=== PATIENT | male | born 1975 | race Caucasian/White ===

== ENCOUNTER 2023-02-24 15:52 | Inpatient (IN) | payer SELFPAY ==
[2023-02-24] VITALS (22 sets, daily range): BP systolic 110–198; BP diastolic 57–119; PULSE 60–84; RESP 17–24; TEMP 36.7–36.9; O2SAT 96–100; BMI 33.9; BMI 35.3
--- NOTE | 2023-02-24 | IR_ITS ---
APPROVED REPORT Patient Location: Emergent Artificial Stone Setter: ILENE Paulson RT (R) PROCEDURES Left heart catheterization Left ventriculogram Selective coronary angiogram Attempted angioplasty of the right coronary Mechanical thrombectomy to the circumflex artery Drug-eluting stent deployment to the mid circumflex artery extending to the obtuse marginal artery INDICATION Acute ST elevation myocardial infarction, Coronary artery disease Informed consent was obtained prior to the procedure. COMPLICATIONS none Estimated Blood Loss: less than 10 ml TECHNIQUE One percent lidocaine used to anesthetize the right anterior aspect of the wrist. The right radial artery was accessed via the Seldinger technique. A 6 [place] sheath was placed in the right radial artery. 2.5 mg of Verapamil, 800 mcg of nitroglycerin, 1mg Lidocaine and 5000 U Heparin were given through the arterial sheath. The papa catheter was also used to perform right coronary angiography. The distal right coronary was occluded therefore Choice PT extra-support wire was placed down the vessel. The wire did not easily pass therefore a 2 mm x 12 mm balloon was advanced and used to steer the wire. When it was apparent this vessel was a chronic occlusion the apparatus was quickly remove and the catheter was used and the gauge the left main artery. A Choice PT wire was used to push through the thrombus in the circumflex artery and a penumbra catheter was used to aspirate the thrombus restoring BRIEN-3 flow. A 3 mm x 26 mm [place] frontier stent was deployed at 18 antonino reducing the stenosis to 0%. An additional 3 mm x 18 mm Jv frontier stent was placed distal to the for stent yet still overlapping and extending into the first obtuse marginal artery and deployed at 16 antonino. The balloon was brought back and deployed at 20 antonino to mesh the 2 stents. BRIEN 0 flow was present at the beginning the procedure with BRIEN-3 flow at the end of procedure. Within the procedure the apparatus was removed the sheath was removed and hemostasis was achieved using TR banding patient was transferred to postop putting in stable condition ANGIOGRAPHIC RESULTS The left main artery Normal The left anterior descending artery Has mild proximal and mid vessel 10% luminal irregularities The circumflex artery Is large giving rise to a large obtuse marginal artery which is proximally thrombosed. After percutaneous revascularization the circumflex artery was widely patent with wide inline flow throughout the large obtuse marginal artery The right coronary artery Is a dominant vessel and distally occluded. The distal posterior descending artery fills via [id number] collaterals The PATEL ventriculogram reveals Ejection fraction of 35 to 40% with inferior wall hypokinesis The left ventricular end-diastolic pressure Severely elevated at 40 mmHg IMPRESSION Chronically occluded distal right coronary artery which fills via [id number] collaterals Acute myocardial infarction involving the circumflex artery approximately a large obtuse marginal artery Successful percutaneous revascularization of the circumflex artery/obtuse marginal artery preceded by mechanical thrombectomy reducing the 100% occlusion to 0% with 2 contiguous drug-eluting stents Reduced ejection fraction which is indeterminant by LV gram Severely elevated LVEDP PLAN 1. Effient 10 mg daily plus aspirin 81 mg daily 2. Supportive care of the next 48 hours 3. Echocardiogram to evaluate ejection fraction to determine if patient is a candidate for LifeVest 4. Recommend renal duplex due to malignant hypertension upon presentation and aggressive vascular disease at a young age. Suspect renal artery stenosis 5. RYLIE inhibitors and beta-blockers to be advanced as hemodynamically
--- NOTE | 2023-02-24 15:54 | ECG_ITS ---
APPROVED REPORT Exam: Resting ECG HR:79 bpm ECG Measurements Heart Rate 79 AXES [place] 189 P 61 QRSd 121 QRS 116 QT 374 T 141 QTc 408 Conclusion SINUS RHYTHM POSSIBLE RIGHT VENTRICULAR HYPERTROPHY [SOME/ALL OF: PROMINENT R IN V1, LATE TRANSITION, RAD, DOUGIE, SSS] INFERIOR MYOCARDIAL INFARCTION , POSSIBLY ACUTE [40+ ms Q WAVE AND/OR ST/T ABNORMALITY IN II/aVF] ANTEROLATERAL MYOCARDIAL INFARCTION , PROBABLY RECENT [40+ ms Q WAVE IN I/aVL/V3-V6] ACUTE OR UNCONFIRMED REPORT Electronically signed by : Marbin Saravia MD 02/25/2023 19:43:58
--- NOTE | 2023-02-24 15:57 | PC.NURSE ---
ER MD Gage speaking with Dr. Macias
--- NOTE | 2023-02-24 16:00 | PC.NURSE ---
pt transported to [facility] at this time.
--- NOTE | 2023-02-24 16:03 | HMH.EDGENADL ---
Discharge Plan Disposition Patient Disposition: Still a Patient Clinical Impressions Clinical Impression: STEMI (ST elevation myocardial infarction) Discharge ED Provider: Alvin Gage Adult HPI General Chief complaint: Chest Pain Stated complaint: chest pain Time Seen by Provider: 02/24/23 15:59 Mode of Arrival: EMS Source of Information: Patient and EMS Limitations: No Limitations Description of Symptoms (Recalled from ER Triage Doc. by RN): pt presents by EMS as STEMI alert. pt states pain started approx 30 mins ago after finishing mowing. pt states pain is located in center of his chest and radiates to his jaw. History of Present Illness HPI narrative: Patient presents for evaluation of acute onset substernal crushing chest pain with history of ACS, symptoms started approximately 30 minutes ago after finishing mowing lawn. Pain radiates to jaw, patient was found to have ST elevation per EMS, Sawmill Moulder Operator was immediately activated upon arrival to the emergency department, other history limited secondary to acuity of patient's condition. Related Data Home Medications Medication Instructions Recorded Confirmed amlodipine 10 mg tablet 5 mg PO DAILY High Blood Pressure 02/24/23 02/24/23 lisinopril 20 mg tablet 20 mg PO DAILY High Blood Pressure 02/24/23 02/25/23 sertraline 25 mg tablet 25 mg PO DAILY Depression 02/24/23 02/24/23 Allergies Allergy/AdvReac Type Severity Reaction Status Date / Time No Known Allergies Allergy Verified 02/24/23 16:00 [facility] Disclaimer: The information contained in this section may have been updated after the patient was seen, as this information can be updated by other users. Medical History (Updated 02/25/23 @ 10:13 by Chelo Sotomayor APRN) Hypertension Juvenile chronic myeloid leukemia Myocardial infarct Surgical History (Updated 02/24/23 @ 17:52 by Mira Parish RN) H/O heart artery stent Social History (Updated 02/24/23 @ 17:53 by Mira Parish RN) Smoking Status: Current every day smoker alcohol intake: never current occupational status: employed Travel in the last 8 weeks: None ROS Obtained: Yes Systems reviewed as appropriate & no additional complaints except as documented Physical Exam General General appearance: alert (Diaphoretic) and in distress Head Head exam: atraumatic and normocephalic Eye Eye exam: Present normal appearance Neck Neck exam: Present normal inspection Chest Chest inspection: Present normal inspection and symmetric chest wall rise Respiratory Respiratory exam: Present normal lung sounds bilaterally; Absent respiratory distress Cardiovascular Cardiovascular exam: Present regular rate, normal rhythm and tachycardia Abdominal Exam Abdominal exam: Present soft Neurological Exam Neurological exam: Present alert and oriented X3 Psychiatric Psychiatric exam: Present normal affect and normal mood Skin Skin exam: Present warm and diaphoresis Medical Decision Making Medical Records Medical records reviewed: Yes I reviewed the patient's medical records. David Inquiry Pt receiving controlled substance: No Vital Signs: 02/24/23 15:52 02/24/23 16:03 Temperature 98.1 F Temperature Source Oral Pulse Rate 79 Pulse Rate [Apical] 84 Respiratory Rate 18 24 Blood Pressure 167/119 H Blood Pressure [Right Arm] 167/106 H Blood Pressure Mean [Right Arm] 126 Blood Pressure Source Automatic Cuff Blood Pressure Source [Right Arm] Automatic Cuff Blood Pressure Position Sitting Blood Pressure Position [Right Arm] Sitting 02 Sat by Pulse Oximetry 98 100 Oxygen Delivery Method Non-Rebreather Nasal Cannula Oxygen Flow Rate (LPM) 15 2 Lab Data Lab Results 02/24/23 15:52: WBC 16.3 H, RBC 5.56, Hgb 16.7, Hct 49.6, MCV 89.1, MCH 30.0, MCHC 33.6, RDW 13.4, Plt Count 258, MPV 8.2, Neut % (Auto) 72.9, Lymph % (Auto) 20.4, [place] % (Auto) 5.1, Eos % (Auto) 0.9, Baso % (Auto) 0.7, Neut # (Auto) 11.9 H, Lymph #
[2023-02-24 16:05] LABS: POC Glucose,Bedside 142 (70-110)
--- NOTE | 2023-02-24 16:09 | PC.NURSE ---
PT BEING TRANSPORTED TO THE DISC PAD PLATE FILLER
[2023-02-24 16:16] LABS: Basophils # 0.1 K/mm3 (0-0.2); Basophils % 0.7 % (0.1-2.0); Eosinophils # 0.2 K/mm3 (0.0-0.4); Eosinophils % 0.9 % (0.1-12.0); Hematocrit 49.6 % (42.0-52.0); Hemoglobin 16.7 g/dL (14.1-18.0); Lymphocytes # 3.3 K/mm3 (0.7-4.5); Lymphocytes % 20.4 % (10-50); Mean Corpuscular HGB Conc 33.6 g/dL (31.8-35.4); Mean Corpuscular Volume 89.1 fl (80-94); Mean Platelet Volume 8.2 fl (7.4-10.4); Monocytes # 0.8 K/mm3 (0.1-1.0); Monocytes % 5.1 % (1.7-9.3); Neutrophils # 11.9 K/mm3 (1.8-7.8); Neutrophils % 72.9 % (37.0-80.0); Platelet Count 258 K/mm3 (142-424); Red Blood Count 5.56 M/mm3 (4.60-6.20); Red Cell Distribution Width 13.4 % (11.5-17.5); White Blood Count 16.3 K/mm3 (4.8-10.8)
[2023-02-24 16:18] LABS: MANUAL DIFFERENTIAL MANUAL DIFFERENTIAL (MANUAL DIFF)
[2023-02-24 16:33] LABS: Alanine Aminotransferase 43 U/L (12-78); Albumin Level 5.3 g/dl (3.5-5.0); Albumin/Globulin Ratio 1.5 (1.1-1.8); Alkaline Phosphatase 68 U/L (38-126); Anion Gap 17.5 mEq/L (5-15); Aspartate Amino Transferase 39 U/L (17-59); Bilirubin,Total 0.7 mg/dl (0.2-1.3); Blood Urea Nitrogen 18 mg/dl (9-20); Calcium 10.2 mg/dl (8.4-10.2); Carbon Dioxide 24 mmol/L (22.0-30.0); Chloride 103 mmol/L (98-107); Creatinine Clearance Estimated 145 mL/min (50-200); Estimated Glomerular Filt Rate 80 ml/min (>60); GFR (African American) 97 ML/MIN (>60); Globulin 3.6 g/dL (1.3-3.2); Glucose 161 mg/dl (74-100); Magnesium 1.8 mg/dl (1.6-2.3); Potassium 4.5 mmoL/L (3.5-5.1); Sodium 140 mmol/L (136-145); Total Protein,Serum 8.9 g/dl (6.3-8.2)
--- NOTE | 2023-02-24 16:36 | PC.NURSE ---
lab called critical result- phosophorus 2, notified ER MD Gage
--- NOTE | 2023-02-24 16:41 | PC.NURSE ---
1548 STEMI alert called, computer lab assistant team paged at this time 1550 Emili called back 1552 Kylie called back 1553 Unique called back 1554 Teresa called back
[2023-02-24 16:43] LABS: INR 1.01 (0.9-1.1); Prothrombin Time 10.9 seconds (10.1-12.5)
[2023-02-24 16:50] LABS: Lymphocytes % 27 % (10-50); Monocytes % 2 % (2-9); Neutrophils % 71 % (42-76); Platelet Estimate Normal; RBC Morphology Normal; Total Cells Counted 100
[2023-02-24 16:55] LABS: Activated Partial Thrombo Time 26.6 seconds (22.8-30.6)
[2023-02-24 17:09] LABS: CATHL Activated Clotting Time 302 SEC (74-125)
--- NOTE | 2023-02-24 17:21 | EXP.HP ---
History of Present Illness *Admission Date: 02/25/23 *Reason for visit:: STEMI *History of present illness: Mr. Lancaster is a 47 year old male with a past medical history of hypertension, cigarette nicotine dependence and obesity who presented to the ED by EMS as a STEMI alert. He developed substernal chest pain that radiated to the jaw shortly after mowing his yard. Left heart catheterization revealed an acute myocardial infarction involving the circumflex artery and a chronically occluded distal right coronary artery. Two drug eluting stents were successfully placed in the circumflex artery reducing the 100% occlusion to 0%. The procedure also revealed a reduced EF and a severely elevated LVEDP. Currently the patient is has no complaints. He denies chest pain and shortness of breath. [facility] Disclaimer: The information contained in this section may have been updated after the patient was seen, as this information can be updated by other users. Medical History (Updated 02/25/23 @ 04:12 by Javid Mayers MD) Hypertension Juvenile chronic myeloid leukemia Myocardial infarct Surgical History (Updated 02/24/23 @ 17:52 by Mira Parish RN) H/O heart artery stent Social History (Updated 02/24/23 @ 17:53 by Mira Parish RN) Smoking Status: Current every day smoker alcohol intake: never current occupational status: employed Travel in the last 8 weeks: None Review of Systems Review of Systems Review of systems:: pertinent systems reviewed and negative unless documented below *Cardiovascular Cardiovascular: Reports chest pain Meds Home Medications and Allergies Home Medications Medication Instructions Recorded Confirmed Type amlodipine 10 mg tablet 5 mg PO DAILY htn 02/24/23 02/24/23 History lisinopril 20 mg tablet 20 mg PO BID htn 02/24/23 02/24/23 History sertraline 25 mg tablet 25 mg PO DAILY Depression 02/24/23 02/24/23 History New Prescriptions to Start Prescriptions: Allergies Allergy/AdvReac Type Severity Reaction Status Date / Time No Known Allergies Allergy Verified 02/24/23 16:00 Exam Data for Last 24 hours Vital signs and Labs for Last 24 Hours: Temp Pulse Resp BP Pulse Ox O2 Del Method O2 Flow Rate 98.1 F 75 17 138/85 96 Nasal Cannula 2 02/24/23 16:09 02/24/23 17:15 02/24/23 17:15 02/24/23 17:15 02/24/23 17:15 02/24/23 16:09 02/24/23 16:09 Laboratory Results - last 24 hr 02/24/23 15:52: WBC 16.3 H, RBC 5.56, Hgb 16.7, Hct 49.6, MCV 89.1, MCH 30.0, MCHC 33.6, RDW 13.4, Plt Count 258, MPV 8.2, Neut % (Auto) 72.9, Lymph % (Auto) 20.4, [place] % (Auto) 5.1, Eos % (Auto) 0.9, Baso % (Auto) 0.7, Neut # (Auto) 11.9 H, Lymph # (Auto) 3.3, [place] # (Auto) 0.8, Eos # (Auto) 0.2, Baso # (Auto) 0.1, Total Counted 100, Neutrophils % (Manual) 71, Lymphocytes % (Manual) 27, Monocytes % (Manual) 2, Platelet Estimate Normal, RBC Morphology Normal, PT 10.9, INR 1.01, APTT 26.6, Sodium 140, Potassium 4.5, Chloride 103, Carbon Dioxide 24, Anion Gap 17.5 H, BUN 18, Creatinine 1.00, Estimated Creat Clear 145, Estimated GFR 80, Est GFR ( Amer) 97, Glucose 161 H, Calcium 10.2, Phosphorus 2.0 L, Magnesium 1.8, Total Bilirubin 0.7, AST 39, ALT 43, Alkaline Phosphatase 68, Total Protein 8.9 H, Albumin 5.3 H, Globulin 3.6 H, Albumin/Globulin Ratio 1.5 02/24/23 15:57: POC Glucose 142 H 02/24/23 16:23: Activated Clotting Time 302 H* I & O for Last 24 hours: Intake & Output 02/21/23 02/22/23 02/23/23 02/24/23 23:59 23:59 23:59 23:59 Weight 113.398 kg Constitutional Constitutional: no acute distress *Routine HEENT Exam Head: Present normocephalic Eye: Present EOMI and PERRL ENT: Present mucous membranes moist *Routine Neck Exam Neck: Present supple; Absent lymphadenopathy *Routine Respiratory Exam Respiratory: Present CTA bilaterally *Routine Cardiovascular Exam Cardiovascular: Present RRR *Routine Abdominal Exam Abdominal: Present soft and normoactive bowel sounds; Absen
--- NOTE | 2023-02-24 18:01 | PC.NURSE ---
pt unable to recall home medicine at this time. pt states he is on a blood pressure medication but unable to recall the name.
--- NOTE | 2023-02-24 18:06 | PC.NURSE ---
arrived by stretcher to floor from laboratory analyst
--- NOTE | 2023-02-24 23:35 | PC.NURSE ---
vss, pt denies cp/soa. radial band removed at 2332 - 2x2 and tegaderm dsg c/d/i. poc ongoing
[2023-02-25] VITALS (8 sets, daily range): BP systolic 127–148; BP diastolic 74–84; PULSE 69–91; RESP 18–20; TEMP 36.4–37.1; O2SAT 96–100; BMI 35.7
--- NOTE | 2023-02-25 00:19 | PC.NURSE ---
reassessed right radial site - dsg c/d/i. post laboratory courier vitals complete.
--- NOTE | 2023-02-25 04:04 | CA_ITS ---
APPROVED REPORT EXAM: Comprehensive 2D, Doppler, and color-flow Echocardiogram Senior Loss Control Specialist: Zena Reyes CRT Ht: 6 ft 1 in Wt: 268lbs BSA: 2.44 BP: 167/106 mmHg Indications: Hypertension/HDD, smoker, cad, prev mi and stents, stents 02/24/23 2D Dimensions LVOT 1.89 cm (M/F) 1.5-2.5 LA Volume 55.30 mL LA Volume Index 22.10 mL/m2 (M/F) 16-34 M-Mode Dimensions RVDd 2.40 cm (0.9-2.6) LA Diam 4.26 cm (1.9-4.0) LVDd 4.90 cm (3.5-5.7) Ao Diam 4.34 cm (2.0-3.7) LVDs 3.41 cm (3.5-5.7) IVSd 1.94 cm (0.6-1.1) PWd 1.44 cm (0.6-1.1) EF (Teich) 57.60% FS 30.40% EDV (Teich) 112.80 mL TAPSE 2.92 (<1.7) ESV (Teich) 47.80 mL LV Diastology E Decel Time 177.00 (160-240 msec) E/A Ratio 0.80 MED E' 6.40 (< 7 cm/sec) MED A' 9.00 cm/s E'/MED E' Ratio 11.59 (>14) LAT E' 3.10 (<10 cm/sec) LAT A' 10.50 cm/s E/LAT E' Ratio 23.94 (>14) Aortic Valve AO Peak GR. 6.40 mmHg Mitral Valve MV E Max Ladarius. 74.00 (40-130 cm/s) MV A Velocity 93.00 (40-130 cm/s) E/A Ratio 0.80 MV Decel. Time 177.00 (160-240 ms) MV PHT 52.00 ms Pulmonary Valve PV Peak Velocity 151.00 (50-150 cm/s) Tricuspid Valve TR P. Velocity 149.00 cm/s RAP Estimate 10.00 mmHg RVSP 18.90 mmHg Left Ventricle Left ventricle is mildly dilated. The left ventricular systolic function is mildly to moderately reduced. There is increased LV wall thickness. There is severe hypokinesis in the inferior and inferolateral LV garcia. Diastolic function is indeterminate. LVEF is 40%. Right Ventricle The right ventricle is normal size. The right ventricular systolic function is normal. Atria The left atrium size is normal. The right atrium size is normal. There is no Doppler evidence of interatrial shunt. Aortic Valve The aortic valve is mildly thickened. The aortic valve opens well. There is no aortic valvular stenosis. No aortic regurgitation is present. Mitral Valve The mitral valve is normal in structure. No evidence of mitral valve stenosis. Trace mitral regurgitation. Tricuspid Valve The tricuspid valve is thin and pliable. Trace tricuspid regurgitation. RVSP is normal. Pulmonic Valve The pulmonary valve is normal in structure. Mild pulmonic regurgitation. Great Vessels The aortic root is normal in size. The visualized proximal segment of the ascending aorta is normal in size. IVC is normal in size and collapses >50% with inspiration. Pericardium There is no pericardial effusion. Other Information Study Quality: Adequate Conclusion Mild to moderate reduction in LV systolic function (LVEF 40%) Inferior and inferolateral wall motion abnromalities. No significant valvular disease. Electronically signed by : Ольга Baig, 02/25/2023 13:46:36
--- NOTE | 2023-02-25 07:42 | HMH.PHAINT1 ---
Pharmacy Intervention Comments: MEDICATION RECONCILIATION COMPLETED ON PATIENT USING EXTERNAL FILL HISTORY FROM PHARMACY. -BRYCE DAVIDSON, ELIAD
--- NOTE | 2023-02-25 10:11 | EXP.CARD.CON ---
History of Present Illness History of Present Illness Consult date: 02/25/23 Requesting physician: Felipe Jackson Consult reason: chest pain Chief complaint: stemi History of present illness: Mr. Lancaster is a 47 year old male with a past medical history of hypertension, cigarette nicotine dependence, CAD and obesity who presented to the ED by EMS as a STEMI alert. He developed substernal chest pain that radiated to the jaw shortly after mowing his yard. Left heart catheterization revealed an acute myocardial infarction involving the circumflex artery and a chronically occluded distal right coronary artery. Two drug eluting stents were successfully placed in the circumflex artery reducing the 100% occlusion to 0%. The procedure also revealed a reduced EF and a severely elevated LVEDP. Currently the patient is has no complaints. He denies chest pain and shortness of breath. [facility] Disclaimer: The information contained in this section may have been updated after the patient was seen, as this information can be updated by other users. Medical History (Updated 02/25/23 @ 10:13 by Chelo Sotomayor APRN) Hypertension Juvenile chronic myeloid leukemia Myocardial infarct Surgical History (Updated 02/24/23 @ 17:52 by Mira Parish RN) H/O heart artery stent Social History (Updated 02/24/23 @ 17:53 by Mira Parish RN) Smoking Status: Current every day smoker alcohol intake: never current occupational status: employed Travel in the last 8 weeks: None Review of Systems *Cardiovascular Cardiovascular: Reports chest pain and Reports dyspnea *Respiratory Respiratory: Reports dyspnea Exam Data for Last 24 hours Vital signs and Labs for Last 24 Hours: Temp Pulse Resp BP Pulse Ox O2 Del Method O2 Flow Rate 98.3 F 81 18 141/84 H 99 Room Air 98 02/25/23 08:00 02/25/23 08:00 02/25/23 08:00 02/25/23 08:00 02/25/23 08:00 02/25/23 08:00 02/24/23 23:00 Laboratory Results - last 24 hr 02/24/23 15:52: WBC 16.3 H, RBC 5.56, Hgb 16.7, Hct 49.6, MCV 89.1, MCH 30.0, MCHC 33.6, RDW 13.4, Plt Count 258, MPV 8.2, Neut % (Auto) 72.9, Lymph % (Auto) 20.4, [place] % (Auto) 5.1, Eos % (Auto) 0.9, Baso % (Auto) 0.7, Neut # (Auto) 11.9 H, Lymph # (Auto) 3.3, [place] # (Auto) 0.8, Eos # (Auto) 0.2, Baso # (Auto) 0.1, Total Counted 100, Neutrophils % (Manual) 71, Lymphocytes % (Manual) 27, Monocytes % (Manual) 2, Platelet Estimate Normal, RBC Morphology Normal, PT 10.9, INR 1.01, APTT 26.6, Sodium 140, Potassium 4.5, Chloride 103, Carbon Dioxide 24, Anion Gap 17.5 H, BUN 18, Creatinine 1.00, Estimated Creat Clear 145, Estimated GFR 80, Est GFR ( Amer) 97, Glucose 161 H, Calcium 10.2, Phosphorus 2.0 L, Magnesium 1.8, Total Bilirubin 0.7, AST 39, ALT 43, Alkaline Phosphatase 68, Total Protein 8.9 H, Albumin 5.3 H, Globulin 3.6 H, Albumin/Globulin Ratio 1.5 02/24/23 15:57: POC Glucose 142 H 02/24/23 16:23: Activated Clotting Time 302 H* I & O for Last 24 hours: Intake & Output 02/22/23 02/23/23 02/24/23 02/25/23 23:59 23:59 23:59 23:59 Intake Total 730 / 850 120 / 120 Output Total 550 / 550 0 / 0 Balance 180 / 300 120 / 120 Weight 268 lb 269 lb 9.6 oz Constitutional Constitutional: no acute distress *Routine Respiratory Exam Respiratory: Present CTA bilaterally and symmetric chest movement *Routine Cardiovascular Exam Cardiovascular: Present RRR, Normal S1 and Normal S2 *Routine Abdominal Exam Abdominal: Present soft and normoactive bowel sounds; Absent tenderness *Routine Extremities Exam Extremities: Present full ROM and normal capillary refill; Absent edema *Routine Skin Exam Skin: Present intact, dry and warm Detailed Neck Exam: Thyroids Thyroid: Absent bruit Meds Home Medications and Allergies Home Medications Medication Instructions Recorded Confirmed Type amlodipine 10 mg tablet 5 mg PO DAILY High Blood Pressure 02/24/23 02/24/23 History lisinopril 20 mg tablet 20 mg PO DAILY High Blood Pre
[2023-02-25 10:56] LABS: Basophils # 0.1 K/mm3 (0-0.2); Basophils % 0.5 % (0.1-2.0); Eosinophils # 0.3 K/mm3 (0.0-0.4); Hematocrit 45.7 % (42.0-52.0); Hemoglobin 15.3 g/dL (14.1-18.0); Lymphocytes # 3.3 K/mm3 (0.7-4.5); Lymphocytes % 24.4 % (10-50); Mean Corpuscular HGB Conc 33.5 g/dL (31.8-35.4); Mean Corpuscular Hemoglobin 29.6 pg (27.0-31.2); Mean Corpuscular Volume 88.5 fl (80-94); Mean Platelet Volume 7.7 fl (7.4-10.4); Monocytes # 0.7 K/mm3 (0.1-1.0); Monocytes % 5.5 % (1.7-9.3); Neutrophils % 67.7 % (37.0-80.0); Platelet Count 189 K/mm3 (142-424); Red Blood Count 5.17 M/mm3 (4.60-6.20); Red Cell Distribution Width 13.5 % (11.5-17.5); White Blood Count 13.3 K/mm3 (4.8-10.8)
[2023-02-25 10:58] LABS: Chloride 103 mmol/L (98-107); Potassium 4.3 mmoL/L (3.5-5.1); Sodium 138 mmol/L (136-145)
[2023-02-25 11:01] LABS: Anion Gap 11.3 mEq/L (5-15); Blood Urea Nitrogen 16 mg/dl (9-20); Calcium 9.7 mg/dl (8.4-10.2); Carbon Dioxide 28 mmol/L (22.0-30.0); Creatinine Clearance Estimated 174 mL/min (50-200); Estimated Glomerular Filt Rate 90 ml/min (>60); GFR (African American) 109 ML/MIN (>60); Glucose 104 mg/dl (74-100)
[2023-02-25 11:02] LABS: Chol/HDL Ratio 5.1 (1-3.5); Cholesterol 203 mg/dl (140-200); HDL Cholesterol 40 mg/dl (40-60); Triglycerides 255 mg/dl (30-150); VLDL Cholesterol 51 mg/dL (0-40)
[2023-02-25 11:13] LABS: Direct LDL Cholesterol 107.75 mg/dL (100-129)
[2023-02-25 11:14] LABS: Hemoglobin A1C 5.4 % (4.0-6.0)
--- NOTE | 2023-02-25 17:49 | CA_ITS ---
FINAL REPORT TECHNIQUE: Grayscale, color Doppler and duplex Doppler ultrasound of the kidneys, aorta and renal arteries was performed. Multiple velocities were measured. CLINICAL HISTORY: hypertension COMPARISON: None FINDINGS: Aorta velocity: 81 cm/sec Right kidney: 13.4 cm. No evidence of hydronephrosis or mass. Right intrarenal RI: 0.63-0.69 Right renal artery velocity: 191 cm/sec. Right RAR (Renal artery-Aortic Ratio): 2.36 Left Kidney: 13.5 cm. No evidence of hydronephrosis or mass. Left intrarenal RI: 0.62-0.65 Left renal artery velocity: 185 cm/sec. Left RAR (Renal Artery-Aortic Ratio): 2.29 IMPRESSION: Less than 60% renal artery stenosis bilaterally. CT angiogram or postcontrast MR angiogram would be more sensitive for evaluation of possible renal artery stenosis. Reviewed, Interpreted and Dictated by Venancio Toledo MD Transcribed by Pamela Oconnor Authenticated and [facility]
--- NOTE | 2023-02-25 20:14 | EXP.ACUTE.PN ---
Subjective *Date: 02/25/23 *Time: 20:14 Interval history: Patient is chest pain-free today. Stable on room air. No nausea vomiting or diarrhea. Overall feels well. No events on telemetry overnight Medical Exam Vital signs and Labs for Last 24 Hours: Vital Signs Temp Pulse Pulse Resp BP Pulse Ox O2 Del Method 02/25/23 20:00 Room Air 02/25/23 16:00 70 02/25/23 17:00 Room Air 02/25/23 16:00 97.6 F 69 20 138/76 98 Room Air 02/25/23 12:27 80 02/25/23 08:00 70 02/25/23 15:00 Room Air 02/25/23 13:00 Room Air 02/25/23 11:00 Room Air 02/25/23 09:00 Room Air 02/25/23 12:00 98.3 F 78 19 146/83 H 96 Room Air 02/25/23 08:00 98.3 F 81 18 141/84 H 99 Room Air 02/25/23 08:00 Room Air 02/25/23 06:27 Room Air 02/25/23 04:58 Room Air 02/25/23 04:00 98.8 F 72 18 127/81 99 Room Air 02/25/23 04:00 70 02/25/23 03:00 Room Air 02/25/23 00:59 Room Air 02/25/23 00:00 80 02/25/23 00:15 78 18 142/74 H 98 Room Air 02/24/23 23:40 60 18 110/57 L 97 Room Air 02/24/23 23:00 Room Air 02/24/23 21:00 Room Air 02/24/23 22:15 74 18 134/76 99 Room Air 02/24/23 21:15 81 18 132/76 97 Room Air 02/24/23 20:15 74 18 142/87 H 99 Room Air O2 Flow Rate 02/25/23 20:00 02/25/23 16:00 02/25/23 17:00 02/25/23 16:00 02/25/23 12:27 02/25/23 08:00 02/25/23 15:00 02/25/23 13:00 02/25/23 11:00 02/25/23 09:00 02/25/23 12:00 02/25/23 08:00 02/25/23 08:00 02/25/23 06:27 02/25/23 04:58 02/25/23 04:00 02/25/23 04:00 02/25/23 03:00 02/25/23 00:59 02/25/23 00:00 02/25/23 00:15 02/24/23 23:40 02/24/23 23:00 98 02/24/23 21:00 99 02/24/23 22:15 02/24/23 21:15 02/24/23 20:15 Intake and Output 02/25/23 02/25/23 02/25/23 07:59 15:59 23:59 Intake Total 120 / 1620 960 / 1620 540 / 1620 Output Total 0 / 0 0 / 0 0 / 0 Balance 120 / 1620 960 / 1620 540 / 1620 Intake: Intake, Oral Amount 120 / 1620 960 / 1620 540 / 1620 Output: Output, Urine Amount 0 / 0 0 / 0 0 / 0 Other: Number of Voids 0 Number of Unmeasured Voids 1 1 Number of Bowel Movements 1 Weight 122.289 kg Patient Weight 02/25/23 23:59 Weight 122.289 kg Laboratory Results - last 24 hr 02/25/23 10:40: WBC 13.3 H, RBC 5.17, Hgb 15.3, Hct 45.7, MCV 88.5, MCH 29.6, MCHC 33.5, RDW 13.5, Plt Count 189 D, MPV 7.7, Neut % (Auto) 67.7, Lymph % (Auto) 24.4, [place] % (Auto) 5.5, Eos % (Auto) 2.0, Baso % (Auto) 0.5, Neut # (Auto) 9.0 H, Lymph # (Auto) 3.3, [place] # (Auto) 0.7, Eos # (Auto) 0.3, Baso # (Auto) 0.1, Sodium 138, Potassium 4.3, Chloride 103, Carbon Dioxide 28, Anion Gap 11.3, BUN 16, Creatinine 0.90, Estimated Creat Clear 174, Estimated GFR 90, Est GFR ( Amer) 109, Glucose 104 H D, Hemoglobin A1c 5.4, Calcium 9.7, Triglycerides 255 H, Cholesterol 203 H, LDL Cholesterol Direct 107.75, VLDL Cholesterol 51 H, HDL Cholesterol 40, Cholesterol/HDL Ratio 5.1 H I & O for Labs for Last 24 Hours: Intake & Output 02/22/23 02/23/23 02/24/23 02/25/23 23:59 23:59 23:59 23:59 Intake Total 730 / 850 1620 / 1620 Output Total 550 / 550 0 / 0 Balance 180 / 300 1620 / 1620 Weight 121.563 kg 122.289 kg Constitutional: Present no acute distress Respiratory: Present normal respiratory effort Cardiac: Present Reg Rate and Rhythm GI: Present normal bowel sounds; Absent tenderness Extremities: Present normal inspection and full ROM Skin: Present intact; Absent erythema Neuro: Present Grossly Intact and moves all extremities Assessment and Plan *Assessment and plan (1) STEMI (ST elevation myocardial infarction): Status: Acute Category: Medical Code(s): I21.3 - ST elevation (STEMI) myocardial infarction of unspecified site (2) Hypertension: Status: Acute Category: Medical Code(s): I10 - Es
[2023-02-26] VITALS: BP 132/77; PULSE 70; RESP 18; TEMP 36.6; O2SAT 99
[2023-02-26 04:00] VITALS: BP 128/78; PULSE 60; PULSE 63; RESP 20; TEMP 36.6; O2SAT 99; BMI 35.2
[2023-02-26 06:45] LABS: Chloride 102 mmol/L (98-107); Sodium 138 mmol/L (136-145)
[2023-02-26 06:46] LABS: Potassium 3.9 mmoL/L (3.5-5.1)
[2023-02-26 06:48] LABS: Anion Gap 11.9 mEq/L (5-15); Blood Urea Nitrogen 17 mg/dl (9-20); Carbon Dioxide 28 mmol/L (22.0-30.0); Creatinine Clearance Estimated 154 mL/min (50-200); Estimated Glomerular Filt Rate 80 ml/min (>60); GFR (African American) 97 ML/MIN (>60)
[2023-02-26 06:49] LABS: Calcium 9.5 mg/dl (8.4-10.2); Glucose 96 mg/dl (74-100)
[2023-02-26 07:02] LABS: Basophils # 0.1 K/mm3 (0-0.2); Basophils % 0.6 % (0.1-2.0); Eosinophils # 0.2 K/mm3 (0.0-0.4); Eosinophils % 1.4 % (0.1-12.0); Hematocrit 48.7 % (42.0-52.0); Hemoglobin 16.1 g/dL (14.1-18.0); Lymphocytes # 3.8 K/mm3 (0.7-4.5); Lymphocytes % 27.9 % (10-50); Mean Corpuscular Hemoglobin 29.7 pg (27.0-31.2); Mean Corpuscular Volume 90.2 fl (80-94); Monocytes # 0.9 K/mm3 (0.1-1.0); Monocytes % 6.5 % (1.7-9.3); Neutrophils # 8.7 K/mm3 (1.8-7.8); Neutrophils % 63.6 % (37.0-80.0); Platelet Count 214 K/mm3 (142-424); Red Cell Distribution Width 13.6 % (11.5-17.5); White Blood Count 13.6 K/mm3 (4.8-10.8)
[2023-02-26 07:35] VITALS: BP 111/66; PULSE 62; RESP 20; TEMP 36.7; O2SAT 98
--- NOTE | 2023-02-26 07:48 | EXP.DC.SUM ---
General Admission date:: 02/24/23 Discharge date: 02/26/23 HPI HPI HPI: Mr. Lancaster is a 47 year old male with a past medical history of hypertension, cigarette nicotine dependence and obesity who presented to the ED by EMS as a STEMI alert. He developed substernal chest pain that radiated to the jaw shortly after mowing his yard. Left heart catheterization revealed an acute myocardial infarction involving the circumflex artery and a chronically occluded distal right coronary artery. Two drug eluting stents were successfully placed in the circumflex artery reducing the 100% occlusion to 0%. The procedure also revealed a reduced EF and a severely elevated LVEDP. Currently the patient is has no complaints. He denies chest pain and shortness of breath. Hospital Course Hospital Course Hospital Course: 47-year-old gentleman who presented with STEMI. Successful PCI performed. Continues to require observation until the morning. Remained stable during admission. Cardiology consulted and assisting with care. Adjustments made to blood pressure regimen. Monitored for 48 hours with no events. Problems addressed as follows: -CAD - STEMI - Hypertension - Heart failure with reduced ejection fraction Presented with STEMI. Was taken to [facility] with successful PCI to circumflex/OM. 2 drug-eluting stents placed. Was monitored for 48 hours due to STEMI. Initiated on goal-directed therapy with aspirin 81 mg daily, Plavix 75 mg daily. Started on bisoprolol 2.5 mg. Continue Lipitor 40 mg daily. Echo obtained showing ejection fraction of 40%. Additionally was started on Aldactone 25 mg daily and Jardiance 40 mg daily prior to discharge. We will also continue losartan 25 mg daily and HCTZ 12.5 mg daily. Patient remained stable during admission. Plan for close follow-up with cardiology. Exam Data for Last 24 hours Vital signs and Labs for Last 24 Hours: Temp Pulse Resp BP Pulse Ox O2 Del Method O2 Flow Rate 98.1 F 62 20 111/66 98 Room Air 98 02/26/23 07:35 02/26/23 07:35 02/26/23 07:35 02/26/23 07:35 02/26/23 07:35 02/26/23 07:35 02/24/23 23:00 Laboratory Results - last 24 hr 02/25/23 10:40: WBC 13.3 H, RBC 5.17, Hgb 15.3, Hct 45.7, MCV 88.5, MCH 29.6, MCHC 33.5, RDW 13.5, Plt Count 189 D, MPV 7.7, Neut % (Auto) 67.7, Lymph % (Auto) 24.4, [place] % (Auto) 5.5, Eos % (Auto) 2.0, Baso % (Auto) 0.5, Neut # (Auto) 9.0 H, Lymph # (Auto) 3.3, [place] # (Auto) 0.7, Eos # (Auto) 0.3, Baso # (Auto) 0.1, Sodium 138, Potassium 4.3, Chloride 103, Carbon Dioxide 28, Anion Gap 11.3, BUN 16, Creatinine 0.90, Estimated Creat Clear 174, Estimated GFR 90, Est GFR ( Amer) 109, Glucose 104 H D, Hemoglobin A1c 5.4, Calcium 9.7, Triglycerides 255 H, Cholesterol 203 H, LDL Cholesterol Direct 107.75, VLDL Cholesterol 51 H, HDL Cholesterol 40, Cholesterol/HDL Ratio 5.1 H 02/26/23 06:06: WBC 13.6 H, RBC 5.40, Hgb 16.1, Hct 48.7, MCV 90.2, MCH 29.7, MCHC 33.0, RDW 13.6, Plt Count 214, MPV 8.0, Neut % (Auto) 63.6, Lymph % (Auto) 27.9, [place] % (Auto) 6.5, Eos % (Auto) 1.4, Baso % (Auto) 0.6, Neut # (Auto) 8.7 H, Lymph # (Auto) 3.8, [place] # (Auto) 0.9, Eos # (Auto) 0.2, Baso # (Auto) 0.1, Sodium 138, Potassium 3.9, Chloride 102, Carbon Dioxide 28, Anion Gap 11.9, BUN 17, Creatinine 1.00, Estimated Creat Clear 154, Estimated GFR 80, Est GFR ( Amer) 97, Glucose 96, Calcium 9.5 I & O for Last 24 hours: Intake & Output 02/23/23 02/24/23 02/25/23 02/26/23 23:59 23:59 23:59 23:59 Intake Total 730 / 850 1750 / 1870 600 / 600 Output Total 550 / 550 0 / 0 Balance 180 / 300 1750 / 1870 600 / 600 Weight 121.563 kg 122.289 kg 120.769 kg Constitutional Constitutional: no acute distress and obese *Routine HEENT Exam Head: Present normocephalic Eye: Present EOMI and PERRL ENT: Present mucous membranes moist *Routine Neck Exam Neck: Present supple; Absent lymphadenopathy *Routine Respiratory Exam Respiratory: Present CTA bilaterally *Routin
[2023-02-26 08:00] VITALS: PULSE 60
--- NOTE | 2023-02-26 11:01 | EXP.CARD.PN ---
Subjective Subjective Date: 02/26/23 Time: 08:30 Principal diagnosis: stemi, cad Interval history: doing well, no complaints. Morning labs reviewed. Exam Data for Last 24 hours Vital signs and Labs for Last 24 Hours: Temp Pulse Resp BP Pulse Ox O2 Del Method O2 Flow Rate 98.1 F 62 20 111/66 98 Room Air 98 02/26/23 07:35 02/26/23 07:35 02/26/23 07:35 02/26/23 07:35 02/26/23 07:35 02/26/23 08:00 02/24/23 23:00 Laboratory Results - last 24 hr 02/25/23 10:40: Carbon Dioxide 28, Anion Gap 11.3, BUN 16, Creatinine 0.90, Estimated Creat Clear 174, Estimated GFR 90, Est GFR ( Amer) 109, Glucose 104 H D, Hemoglobin A1c 5.4, Calcium 9.7, Triglycerides 255 H, Cholesterol 203 H, LDL Cholesterol Direct 107.75, VLDL Cholesterol 51 H, HDL Cholesterol 40, Cholesterol/HDL Ratio 5.1 H 02/26/23 06:06: WBC 13.6 H, RBC 5.40, Hgb 16.1, Hct 48.7, MCV 90.2, MCH 29.7, MCHC 33.0, RDW 13.6, Plt Count 214, MPV 8.0, Neut % (Auto) 63.6, Lymph % (Auto) 27.9, [place] % (Auto) 6.5, Eos % (Auto) 1.4, Baso % (Auto) 0.6, Neut # (Auto) 8.7 H, Lymph # (Auto) 3.8, [place] # (Auto) 0.9, Eos # (Auto) 0.2, Baso # (Auto) 0.1, Sodium 138, Potassium 3.9, Chloride 102, Carbon Dioxide 28, Anion Gap 11.9, BUN 17, Creatinine 1.00, Estimated Creat Clear 154, Estimated GFR 80, Est GFR ( Amer) 97, Glucose 96, Calcium 9.5 I & O for Last 24 hours: Intake & Output 02/23/23 02/24/23 02/25/23 02/26/23 23:59 23:59 23:59 23:59 Intake Total 730 / 850 1750 / 1870 600 / 600 Output Total 550 / 550 0 / 0 Balance 180 / 300 1750 / 1870 600 / 600 Weight 268 lb 269 lb 9.6 oz 266 lb 4 oz Constitutional Constitutional: no acute distress *Routine HEENT Exam Head: Present normocephalic Eye: Present EOMI and PERRL ENT: Present mucous membranes moist *Routine Neck Exam Neck: Present supple; Absent lymphadenopathy *Routine Respiratory Exam Respiratory: Present CTA bilaterally *Routine Cardiovascular Exam Cardiovascular: Present RRR *Routine Abdominal Exam Abdominal: Present soft and normoactive bowel sounds; Absent tenderness *Routine Extremities Exam Extremities: Absent cyanosis, clubbing or edema *Routine Skin Exam Skin: Present warm; Absent rash *Routine Neurological Exam Neurological: Present alert and oriented X3 Progress Note: A&P Assessment and plan (1) STEMI (ST elevation myocardial infarction): Status: Acute (2) Hypertension: Status: Acute (3) Malignant hypertension: Status: Acute (4) Hyperlipidemia: Status: Acute (5) Tobacco use: Status: Acute Assessment and Plan Assessment and Plan for All Diagnoses:: History of coronary artery disease STEMI -Left heart catheterization 02/24/2023: Successful percutaneous revascularization of the circumflex artery/obtuse marginal artery preceded by mechanical thrombectomy with placement of 2 SAW. Severely elevated LVEDP. -Continue DAPT therapy with aspirin 81 mg p.o. daily, Plavix 75 mg p.o. daily. Start bisoprolol 2.5 mg p.o. daily continue atorvastatin 40 mg p.o. daily. Hypertension-resolved -Renal artery duplex-less than 60% renal artery stenosis bilaterally -Losartan 25mg daily and hctz 12.5mg daily. Add bisoprolol 5mg daily Acute HFrEF- NYHA I-II -Echo 02/25/2023 shows a mild to moderate reduction in LV systolic function estimate EF 40%, inferior and inferior lateral wall motion abnormalities noted. No significant valve disease -Continue losartan and bisoprolol as above. We will add Aldactone 25 mg p.o. daily and Jardiance 10 mg p.o. daily. 02/25/2023 summary:cv stable for or home. follow up in clinic in 1 week. Cardiac meds Aspirin 81 mg p.o. daily Plavix 75 mg p.o. daily Bisoprolol 5 mg p.o. daily Atorvastatin 40 mg p.o. daily Losartan 25 mg p.o. daily Hydrochlorothiazide 12.5 mg daily Aldactone 25 mg p.o. daily Jardiance 10 mg p.o. daily
--- NOTE | 2023-02-27 14:41 | CARE MANAGER ---
Contacted patient related to hospital discharge. He is picking up his medications tomorrow and is aware of his follow up appointment. Denies questions or concerns at this time. MARIBELL Urban
== END 2023-02-26 12:01 | disposition home or self-care (01) | DRG 246 ==
LOC: ER 17:00 → 2ND 17:35
PROVIDERS: Internal Medicine; Internal Medicine Adolescent Medicine; Nurse Practitioner; Admitting Provider Internal Medicine; Emergency Provider Emergency Medicine; Visit Provider Internal Medicine
PROC: 027034Z Dilation of Coronary Artery, One Artery with Drug-eluting Intraluminal Device, Percutaneous Approach (ICD-10-PCS; principal; 2023-02-24 16:00)
DX: I21.3 ST elevation (STEMI) myocardial infarction of unspecified site (principal); I25.10 Atherosclerotic heart disease of native coronary artery without angina pectoris; I50.21 Acute systolic (congestive) heart failure; I42.9 Cardiomyopathy, unspecified; I11.0 Hypertensive heart disease with heart failure; E66.9 Obesity, unspecified; Z68.35 Body mass index [BMI] 35.0-35.9, adult; F17.210 Nicotine dependence, cigarettes, uncomplicated; E78.5 Hyperlipidemia, unspecified
CPT/HCPCS: 36415; 80048; 80053; 80061; 82962; 83036; 83735; 84100; 85007; 85025; 85347; 85610; 85730; 92928; 93005; 93306; 93458; 93976; 99152; 99285; C1725; C1760; C1769; C1876; C9600; J1644; Q9967